=== PATIENT | female | born 1945 | race Caucasian/White ===

== ENCOUNTER 2016-12-30 10:49 | Emergency (ER) | payer OTHER ==
[~2016-12-30] VITALS: Ht 154.9 cm; Wt 59.0 kg
[~2016-12-30 10:49] MED LIST: GEMF600T8; HYDROCODON-ACETAMINOPHEN 5-325; OLAN20TA20; RISP2TAB29; SERT50TA
--- NOTE | 2016-12-30 10:49 | NUR ---
Patient was BIBA and taken to bed 05 via gurney per EMS.
[2016-12-30 10:53] VITALS: BP 124/69
--- NOTE | 2016-12-30 10:55 | NUR ---
PT BIBA FOR EVALUATION OF SOB X3 DAYS. 02 SATS 93% ON ROOM AIR. HX COPD, BORDERLINE DIABETIC, ANXIETY, DEPRESSION, LYMPHOMA-LAST CHEMO TX 2 YEARS AGO. PORT-A-CATH LEFT UPPER CHEST. DENIES N/V/D; SKIN IS PINK/WARM/DRY; AAOX4 WITH EVEN AND STEADY GAIT; LUNGS CLEAR BL; HR EVEN AND REGULAR; PT DENIES ANY CP AT THIS TIME; PATIENT STATES PAIN OF 0/10 AT THIS TIME;PATIENT POSITIONED FOR COMFORT; HOB ELEVATED; BEDRAILS UP X2; BED DOWN. ALL MONITORS IN PLACED.
--- NOTE | 2016-12-30 10:57 | NUR ---
PT O2 SAT WAS 90 % ROOM AIR;PLACED PT IN HIGH FOWLERS POSITION; 2 LPM O2.
--- NOTE | 2016-12-30 11:13 | NUR ---
Dr. Vallecillo evaluating patient at bedside.
[2016-12-30] MEDS ORDERED: NACL 0.9% 500 ML IV ONE ×2 (11:15)
--- NOTE | 2016-12-30 11:22 | NUR ---
XRAY at bedside.
[2016-12-30] MEDS ORDERED: ALBUTEROL SULFATE/IPRATROPIU 3 ML SOL IH ONE (11:35)
--- NOTE | 2016-12-30 11:40 | NUR ---
RT at bedside to give patient breathing treatment.
[2016-12-30 12:09] LABS: BASOPHILS # (AUTO) 0.1 K/uL (0.00-0.22); BASOPHILS % (AUTO) 1.2 % (0.0-2.0); EOSINOPHILS # (AUTO) 0.4 K/uL (0-0.4); EOSINOPHILS % (AUTO) 4.2 % (0.0-4.0); HEMATOCRIT 39.9 % (36-48); HEMOGLOBIN 12.7 g/dL (12.0-16.0); LYMPHOCYTES # (AUTO) 2.1 K/uL (2.5-16.5); LYMPHOCYTES % (AUTO) 20.7 % (20.5-51.1); MEAN CORPUSCULAR HEMOGLOBIN 29 pg (27-31); MEAN CORPUSCULAR HGB CONC 32 g/dL (33-37); MEAN CORPUSCULAR VOLUME 89 fL (80-94); MONOCYTES # (AUTO) 0.7 K/uL (0.8-1.0); MONOCYTES % (AUTO) 6.7 % (1.7-9.3); NEUTROPHILS # (AUTO) 6.6 K/uL (1.8-7.7); NEUTROPHILS % (AUTO) 67.2 % (42.2-75.2); PLATELET COUNT (AUTO) 397 K/uL (140-450); RED BLOOD CELL COUNT(AUTO) 4.46 MIL/uL (4.20-5.40); RED CELL DISTRIBUTION WIDTH 12.2 % (11.6-13.7); WHITE BLOOD COUNT (AUTO) 9.9 K/uL (4.8-10.8)
--- NOTE | 2016-12-30 12:11 | NUR ---
PT ASKED FOR A JUICE;OFFERED WATER INSTEAD BECAUSE BS IS SLIGHTLY ELEVATED;EXPLAINED TO PT THAT IT WILL RAISE HER BS MORE BUT PT GETS UPSET AND INSISTED TO GAVE HER A JUICE.
[2016-12-30 12:14] LABS: APPEARANCE,URINE HAZY (CLEAR); BILIRUBIN,URINE NEGATIVE (NEGATIVE); BLOOD, URINE NEGATIVE (NEGATIVE); LEUKOCYTE ESTERASE ,URINE 2+ (NEGATIVE); NITRITE, URINE POSITIVE (NEGATIVE); PH,URINE 5.5 (5.0-9.0); PROTEIN,URINE NEGATIVE (NEGATIVE); UGLUCOSE NEGATIVE (NEGATIVE); UROBILINOGEN,URINE 0.2 EU/dL (0.2 - 1)
[2016-12-30 12:27] LABS: ANION GAP 11.6 (8-16); CALCIUM 10.5 mg/dL (8.5-10.1); CARBON DIOXIDE 29.8 mmol/L (21-32); CHLORIDE 102 mmol/L (98-107); CREATININE 0.8 mg/dL (0.6-1.3); GLUCOSE 114 mg/dL (74-106); POTASSIUM 4.4 mmol/L (3.5-5.1); SODIUM SERUM 139 mmol/L (136-145); UREA NITROGEN, BLOOD 20 mg/dL (7-18)
[2016-12-30 12:29] LABS: PARTIAL THROMBOPLASTIN TIME 28.9 secs (22-35.6); PROTHROMBIN TIME 10.1 secs (10.8-13.4)
[2016-12-30 12:32] LABS: ALANINE AMINOTRANSFERASE 22 U/L (14-59); ALKALINE PHOSPHATASE 135 U/L (46-116); ASPARTATE AMINOTRANSFERASE 28 U/L (15-37); TOTAL BILIRUBIN 0.2 mg/dL (0.0-1.0); TOTAL PROTEIN, SERUM 7.7 g/dL (6.4-8.2)
[2016-12-30 12:37] LABS: LACTIC ACID 1.1 mmol/L (0.4-2.0)
[2016-12-30 12:45] LABS: BACTERIA,URINE 4+ /HPF (None Seen); RBC,URINE NONE SEEN /HPF (0-5); SQUAMOUS EPITHELIAL CELL,UR 0-3 (FEW) /LPF (0-3 (FEW)); WBC,URINE 16-25 (MOD) /HPF (0-5)
[2016-12-30 12:46] LABS: COLOR,URINE YELLOW (YELLOW)
[2016-12-30] MEDS ORDERED: LEVOFLOXACIN 500 MG/D5W PREMIX 100 ML IV ONE (13:05)
--- NOTE | 2016-12-30 13:16 | NUR ---
PT RESTING IN BED;NO ACUTE DISTRESS NOTED AT THIS TIME.WILL CONTINUE TO MONITOR PT.
--- NOTE | 2016-12-30 13:41 | NUR ---
PT ATE HER LUNCH.
--- NOTE | 2016-12-30 13:42 | NUR ---
PT REMOVED ALL HER MONITORS;WILL CONTINUE TO MONITOR PT.
--- NOTE | 2016-12-30 14:03 | NUR ---
PT REFUSES TO PUT BACK ON HER NC;PT STATES "I DON'T WANT IT BACK ON"
--- NOTE | 2016-12-30 14:09 | NUR ---
PT WANTS TO TAKE OFF HER IV;ADVISED PT TO FINISH HER IV ANTI BIOTIC BUT REFUSES;
--- NOTE | 2016-12-30 14:15 | NUR ---
PT WAS IN A HURRY TO GO HOME;PT STATES "I'M GOING HOME NOW"'
[2016-12-30 14:19] VITALS: BP 112/53
--- NOTE | 2016-12-30 14:19 | NUR ---
Patient discharged with v/s stable. Written and verbal after care instructions given and explained. Patient alert, oriented and verbalized understanding of instructions. Ambulatory with steady gait. All questions addressed prior to discharge. ID band removed. Patient advised to follow up with PMD. Rx of CIRPO AND ALBUTEROL given. Patient educated on indication of medication including possible reaction and side effects. Opportunity to ask questions provided and answered.
== END 2016-12-30 14:19 | disposition home or self-care (01) ==
LOC: MED 10:49
DX: J44.1 Chronic obstructive pulmonary disease with (acute) exacerbation (principal); N39.0 Urinary tract infection, site not specified; Z85.72 Personal history of non-Hodgkin lymphomas; F32.9 Major depressive disorder, single episode, unspecified; F41.9 Anxiety disorder, unspecified
CPT/HCPCS: 36415; 71010; 80053; 81001; 82948; 83605; 83880; 84484; 85025; 85610; 85730; 87040; 87086; 87186; 93005; 94640; 96361; 96365; 99285; J1956; J7030; J7620

== ENCOUNTER 2017-02-05 08:06 | Emergency (ER) | payer OTHER ==
[~2017-02-05] VITALS: Ht 154.9 cm; Wt 56.7 kg
[2017-02-05 08:17] VITALS: BP 124/74
[2017-02-05 09:18] VITALS: BP 122/63
== END 2017-02-05 09:18 | disposition home or self-care (01) ==
LOC: MED 08:06
DX: C85.80 Other specified types of non-Hodgkin lymphoma, unspecified site (principal); J44.9 Chronic obstructive pulmonary disease, unspecified; E11.9 Type 2 diabetes mellitus without complications; Z79.899 Other long term (current) drug therapy; Z88.0 Allergy status to penicillin; Z88.2 Allergy status to sulfonamides; F17.210 Nicotine dependence, cigarettes, uncomplicated
CPT/HCPCS: 99283

== ENCOUNTER 2018-03-04 19:00 | Inpatient (IN) | payer OTHER ==
[~2018-03-04] VITALS: Ht 154.9 cm; Wt 49.9 kg
--- NOTE | 2018-03-04 19:01 | NUR ---
PT BIBA ALS TO BED 3
--- NOTE | 2018-03-04 19:01 | NUR ---
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 PT ALSO REPORTS SHARP MIDSTERNAL CP NONRADIAITING DURING INSPIRATION. ALL LUNG SOUNDS CBTA, 18RR EVEN AND UNLABORED, SATS 97% RA. ABLE TO SPEAK FULL LENGTH WITHOUT DIFFICULTY, SKIN IS WARM AND DRY. HR EVEN AND REGULAR. PMH: COPD, SCHIZOPHRENIA.
[2018-03-04 19:07] VITALS: BP 120/68
--- NOTE | 2018-03-04 19:14 | NUR ---
EKG PERFORMED AT BEDSIDE. PT COVERED IN GOWN DURING PROCEDURE. NORMAL SINUS RHYTHM
[2018-03-04] MEDS ORDERED: KETOROLAC 30 MG/ML VIAL IVP ONE (19:25)
[2018-03-04] MEDS ORDERED: ALBUTEROL SULFATE/IPRATROPIU 3 ML SOL IH ONE ×2 (19:25→21:10)
[2018-03-04] MEDS ORDERED: ALBUTEROL 0.083% 2.5 MG/3 ML NEBU INH ONE ×2 (19:25→21:10)
[2018-03-04] MEDS ORDERED: predniSONE 20 MG TAB PO ONE (19:25)
[2018-03-04 19:51] LABS: BASOPHILS # (AUTO) 0.1 K/uL (0.00-0.22); BASOPHILS % (AUTO) 0.5 % (0.0-2.0); EOSINOPHILS # (AUTO) 0.1 K/uL (0-0.4); EOSINOPHILS % (AUTO) 0.7 % (0.0-4.0); HEMATOCRIT 38.7 % (36-48); HEMOGLOBIN 12.6 g/dL (12.0-16.0); LYMPHOCYTES # (AUTO) 1.9 K/uL (2.5-16.5); LYMPHOCYTES % (AUTO) 15.5 % (20.5-51.1); MEAN CORPUSCULAR HEMOGLOBIN 28 pg (27-31); MEAN CORPUSCULAR HGB CONC 33 g/dL (33-37); MEAN CORPUSCULAR VOLUME 86.2 fL (80-94); MONOCYTES % (AUTO) 8.2 % (1.7-9.3); NEUTROPHILS # (AUTO) 9.1 K/uL (1.8-7.7); NEUTROPHILS % (AUTO) 75.1 % (42.2-75.2); PLATELET COUNT (AUTO) 356 K/uL (140-450); RED BLOOD CELL COUNT(AUTO) 4.49 MIL/uL (4.20-5.40); RED CELL DISTRIBUTION WIDTH 13.1 % (11.6-13.7); WHITE BLOOD COUNT (AUTO) 12.2 K/uL (4.8-10.8)
[2018-03-04 20:15] LABS: ALBUMIN 3.6 g/dL (3.4-5.0); ANION GAP 7.9 (8-16); ASPARTATE AMINOTRANSFERASE 14 U/L (15-37); CARBON DIOXIDE 29.1 mmol/L (21-32); CHLORIDE 92 mmol/L (98-107); CREATININE 0.7 mg/dL (0.6-1.3); GLUCOSE 105 mg/dL (74-106); SODIUM SERUM 125 mmol/L (136-145); TOTAL BILIRUBIN 0.2 mg/dL (0.0-1.0)
[2018-03-04 20:23] LABS: PROTHROMBIN TIME 9.7 secs (10.8-13.4)
[2018-03-04 20:34] LABS: UREA NITROGEN, BLOOD 23 mg/dL (7-18)
--- NOTE | 2018-03-04 21:00 | NUR ---
PT RESTING IN BED COMFORTABLE. NAD
[2018-03-04] MEDS ORDERED: MORPHINE SULFATE 4 MG/ML SYR IVP ONE (21:10)
[2018-03-04] MEDS ORDERED: NACL 0.9% 1,000 ML IV ONE (21:10)
[2018-03-04] MEDS ORDERED: ONDANSETRON 4 MG/2 ML VIAL IVP PRN (22:55)
[2018-03-04] MEDS ORDERED: ACETAMINOPHEN 325 MG TAB PO PRN (22:55)
[2018-03-04] MEDS ORDERED: ALBUTEROL 0.083% 2.5 MG/3 ML NEBU IH PRN (22:55)
--- NOTE | 2018-03-04 23:21 | NUR ---
PT RESTING IN BED. NO S/S OF DISTRESS NOTED
--- NOTE | 2018-03-04 23:30 | NUR ---
Patient will be admitted to care of DR. JORDAN. Admited to TELE. Will go to room 110B. Belongings list completed. Report to CLEVELAND GARCIA.
[2018-03-04 23:40] VITALS: BP 126/58
--- NOTE | 2018-03-04 23:40 | NUR ---
PT ARRIVED FROM ER VIA GURNEY ESCORTED BY ISHAN GARCIA AND EMT TO UNIT. PT ABLE TO AMBULATE TO BED, TELEMONITOR PLACED ON PT AND PT ORIENTED TO ROOM, BATHROOM, ROOMMATE, BED CONTROL, CALL WELLS ECT. PT BREATHING EVEN AND UNLABORED NO S/S OF PAIN OR DISTRESS NOTED.
--- NOTE | 2018-03-05 00:30 | NUR ---
PT AO X3, IN LOW BED SIDE RAILS UP X 2 V/S FOLLOWS T 97.3 P 104 R 22 B/P 126/58 02 97%. PT IN BED AND COOPERATIVE WITH STAFF. HER SKIN IS INTACT AND SHE IS ABLE TO AMBULATE INDEPENDENTLY. PT N/S BOLUS STILL RUNNING, PT CONSTANTLY REMINDED TO KEEP ARM STRAIGHT AND TO KEEP TELEMONITORING STICKERS ON CHEST.
[2018-03-05] MEDS: HYDROmorphone 1 MG/ML AMP IVP PRN ×3 (01:11→10:44)
--- NOTE | 2018-03-05 02:00 | NUR ---
PT C/O OF 7/10 PAIN IN CHEST AND BACK, RECEIVED PRN DILAUDID IVP, POSITIVE EFFECT NOTED , PT STATES THAT SHE IS FEELING BETTER. PT GIVEN JUICE PER REQUEST. ALL REQUESTED NEEDS ATTENDED BY STAFF AND PT HAS CALL WELLS IN HER REACH.
[2018-03-05 04:00] VITALS: BP 129/64
[2018-03-05 05:15] LABS: CREATINE KINASE MB 3.8 ng/mL (0-3.6)
--- NOTE | 2018-03-05 06:00 | NUR ---
PT C/O PAIN IN BACK AND CHEST WHICH IS 8/10. PT GIVEN PRN 0.25ML OF DILAUDID. PT IN LOW BED WITH CALL WELLS IN REACH. WILL MONITOR FOR EFFECT
--- NOTE | 2018-03-05 07:20 | NUR ---
GAVE REPORT TO CARLOS GARCIA DAYSHIFT NURSE AT BEDSIDE FOR CONTINUITY OF CARE. PT IN STABLE CONDITION.
--- NOTE | 2018-03-05 07:25 | NUR ---
RECEIVED PT FROM HOME RESTORATION SERVICE SUPERVISOR NURSE, PT IS AWAKE AND LYING ON THE BED WITH SIDE RAILS UP AND CALL LIGHT WITHIN REACH. SAFETY PRECAUTION ENFORCED, BED ALARM ACTIVATED. PT DENIES PAIN AND HAS AN IV LINE ON SALINE LOCK AT THE LEFT AC G. 20, INTACT. NO SIGN OF DISTRESS NOTED AND WILL CONTINUE TO BE MONITORED
[2018-03-05 08:00] VITALS: BP 142/72
[2018-03-05 08:14] LABS: ALBUMIN 3.7 g/dL (3.4-5.0); ANION GAP 6.7 (8-16); ASPARTATE AMINOTRANSFERASE 16 U/L (15-37); CHLORIDE 99 mmol/L (98-107); CREATININE 0.6 mg/dL (0.6-1.3); GLUCOSE 119 mg/dL (74-106); MAGNESIUM 1.8 mg/dL (1.8-2.4); PHOSPHORUS 3.5 mg/dL (2.5-4.9); POTASSIUM 4.7 mmol/L (3.5-5.1); SODIUM SERUM 130 mmol/L (136-145); TOTAL BILIRUBIN 0.2 mg/dL (0.0-1.0); UREA NITROGEN, BLOOD 18 mg/dL (7-18)
[2018-03-05] MEDS ORDERED: ENOXAPARIN 40 MG/0.4 ML SYR SUBQ SCH (09:00)
[2018-03-05] MEDS ORDERED: ASPIRIN 81 MG TAB.CHEW PO SCH (09:00)
--- NOTE | 2018-03-05 09:04 | NUR ---
PATIENT HAS BEEN SCREENED AND CATEGORIZED MODERATE NUTRITION RISK. PATIENT WILL BE SEEN WITHIN 3-5 DAYS OF ADMISSION. 03/07/18 03/09/[address]
[2018-03-05 12:00] VITALS: BP 134/65
--- NOTE | 2018-03-05 12:10 | NUR ---
PT IS AWAKE AND VITAL SIGNS TAKEN AND WITHIN NORMAL LIMITS. NO SIGN OF DISTRESS NOTED, PT DENIES PAIN AT THIS TIME.
[2018-03-05 12:51] LABS: CREATINE KINASE MB 2.8 ng/mL (0-3.6)
--- NOTE | 2018-03-05 13:40 | NUR ---
DR. ROY CAME TO PT'S ROOM AND TALKED TO PT.
--- NOTE | 2018-03-05 15:53 | NUR ---
ADMISSION CHART REVIEW DONE. ER REPORT AND H&P FAXED TO [facility] [phone] PHONE MANA [phone] FOR DISCHARGE TODAY.
[2018-03-05 16:00] VITALS: BP 136/68
[2018-03-05] MEDS ORDERED: GEMFIBROZIL 600 MG TAB PO SCH (17:00)
--- NOTE | 2018-03-05 17:00 | NUR ---
PTY IS AWAKE AND VITAL SIGNS TAKEN AND IS STABLE. NO SIGN OF DISTRESS NOTED.
--- NOTE | 2018-03-05 18:35 | NUR ---
PT IS AWAKE AND JUST FINISHED WITH HER DINNER, MEDICATION GIVEN AND PT TOLERATED IT. NO SIGN OF DISTRESS NOTED.
--- NOTE | 2018-03-05 19:05 | NUR ---
DISCHARGED PT WITH THE SISTER, DISCHARGED INSTRUCTIONS AND MEDICATION PRESCRIPTION GIVEN. IV LINE AND ARM BAND REMOVED. PT IS STABLE AT THIS TIME.
[2018-03-06] MEDS ORDERED: risperiDONE 1 MG TAB PO SCH (09:00)
[2018-03-06] MEDS ORDERED: OLANZapine 2.5 MG TAB PO SCH (09:00)
[2018-03-06] MEDS ORDERED: SERTRALINE 50 MG TAB PO SCH (09:00)
== END 2018-03-05 19:05 | disposition home or self-care (01) | DRG 206 ==
LOC: MED 19:00 → MTU 23:00
PROVIDERS: ADMIT Hospitalist; ATTEND Hospitalist
DX: M94.0 Chondrocostal junction syndrome [Tietze] (principal); I24.9 Acute ischemic heart disease, unspecified; J44.9 Chronic obstructive pulmonary disease, unspecified; E78.5 Hyperlipidemia, unspecified; F20.9 Schizophrenia, unspecified; Z80.9 Family history of malignant neoplasm, unspecified; Z88.0 Allergy status to penicillin; Z88.7 Allergy status to serum and vaccine; F32.9 Major depressive disorder, single episode, unspecified
CPT/HCPCS: 36415; 71045; 80053; 82550; 82553; 82948; 83735; 83880; 84100; 84484; 85025; 85610; 85730; 87081; 93005; 94640; 96361; 96374; 96375; 99285; J1170; J1650; J1885; J2270; J7030; J7512; J7613; J7620; Q0092

== ENCOUNTER 2018-04-25 22:58 | Inpatient (IN) | payer OTHER ==
[~2018-04-25] VITALS: Ht 152.4 cm; Wt 54.4 kg
[2018-04-25 22:58] VITALS: BP 141/87
[~2018-04-25 22:58] MED LIST changes: -GEMF600T8; +GEMF600T9
[2018-04-26 00:33] LABS: APPEARANCE,URINE CLEAR (CLEAR); COLOR,URINE YELLOW (YELLOW)
[2018-04-26 00:34] LABS: BILIRUBIN,URINE NEGATIVE (NEGATIVE); BLOOD, URINE NEGATIVE (NEGATIVE); LEUKOCYTE ESTERASE ,URINE NEGATIVE (NEGATIVE); NITRITE, URINE NEGATIVE (NEGATIVE); UGLUCOSE NEGATIVE (NEGATIVE)
[2018-04-26 01:31] LABS: BASOPHILS # (AUTO) 0.1 K/uL (0.00-0.22); BASOPHILS % (AUTO) 0.6 % (0.0-2.0); EOSINOPHILS # (AUTO) 0.1 K/uL (0-0.4); EOSINOPHILS % (AUTO) 0.9 % (0.0-4.0); HEMATOCRIT 37.9 % (36-48); HEMOGLOBIN 12.5 g/dL (12.0-16.0); LYMPHOCYTES # (AUTO) 0.9 K/uL (2.5-16.5); LYMPHOCYTES % (AUTO) 10.6 % (20.5-51.1); MEAN CORPUSCULAR HEMOGLOBIN 29 pg (27-31); MEAN CORPUSCULAR HGB CONC 33 g/dL (33-37); MEAN CORPUSCULAR VOLUME 86.7 fL (80-94); MONOCYTES # (AUTO) 0.6 K/uL (0.8-1.0); MONOCYTES % (AUTO) 7.1 % (1.7-9.3); NEUTROPHILS % (AUTO) 80.8 % (42.2-75.2); PLATELET COUNT (AUTO) 450 K/uL (140-450); RED BLOOD CELL COUNT(AUTO) 4.37 MIL/uL (4.20-5.40); RED CELL DISTRIBUTION WIDTH 12.8 % (11.6-13.7); WHITE BLOOD COUNT (AUTO) 8.6 K/uL (4.8-10.8)
[2018-04-26 02:11] LABS: ANION GAP 13.9 (8-16); CARBON DIOXIDE 28.1 mmol/L (21-32); CHLORIDE 100 mmol/L (98-107); CREATININE 0.9 mg/dL (0.6-1.3); GLUCOSE 104 mg/dL (74-106); SODIUM SERUM 139 mmol/L (136-145); UREA NITROGEN, BLOOD 10 mg/dL (7-18)
[2018-04-26 02:24] LABS: ASPARTATE AMINOTRANSFERASE 13 U/L (15-37); TOTAL BILIRUBIN 0.2 mg/dL (0.0-1.0)
[2018-04-26 02:25] LABS: ACETAMINOPHEN < 0.5 ug/ml (10-30); ALBUMIN 3.2 g/dL (3.4-5.0); SALICYLATE 3.7 mg/dL (2.8-20.0)
[2018-04-26 04:12] LABS: BENZODIAZEPINE, URINE NEG. ng/mL (NEG <=200); CANNABINOID, URINE NEG. ng/mL (NEG <=50); COCAINE, URINE NEG. ng/mL (NEG <=300); OPIATE, URINE NEG. ng/mL (NEG <=2000); PHENCYCLIDINE SCREEN,URINE NEG. ng/mL (NEG <=25)
[2018-04-26 04:27] LABS: BARBITURATE, URINE NEGATIVE ng/ml (NEG <=200)
[2018-04-26] MEDS ORDERED: POTASSIUM CHLORIDE 20% 40 MEQ/15 ML UDC PO ONE (07:20)
[2018-04-26] MEDS ORDERED: ALBUTEROL 0.083% 2.5 MG/3 ML NEBU IH PRN (08:05)
[2018-04-26] MEDS ORDERED: MORPHINE SULFATE 4 MG/ML SYR IVP PRN (08:05)
[2018-04-26] MEDS ORDERED: ONDANSETRON 4 MG/2 ML VIAL IVP PRN (08:05)
[2018-04-26 08:30] VITALS: BP 126/63
[2018-04-26] MEDS: ACETAMINOPHEN 325 MG TAB PO PRN ×2 (10:14→15:29)
[2018-04-26] MEDS: ENOXAPARIN 30 MG/0.3 ML SYR SUBQ SCH (10:15)
[2018-04-26] MEDS ORDERED: INSULIN LISPRO SLIDING SCALE 100 UNITS/ML VIAL SUBQ PRN (12:20)
[2018-04-26 16:00] VITALS: BP 107/52
[2018-04-26] MEDS: BLOOD GLUCOSE MONITORING 1 DEV DEV FS SCH ×2 (16:55→21:09)
[2018-04-27] VITALS: BP 114/50
[2018-04-27 08:00] VITALS: BP 112/55
[2018-04-27] MEDS: BLOOD GLUCOSE MONITORING 1 DEV DEV FS SCH ×4 (08:30→20:02)
[2018-04-27] MEDS: OLANZapine 5 MG TAB PO SCH (08:49)
[2018-04-27] MEDS: GEMFIBROZIL 600 MG TAB PO SCH (08:49)
[2018-04-27] MEDS: risperiDONE 1 MG TAB PO SCH (08:49)
[2018-04-27] MEDS: ENOXAPARIN 30 MG/0.3 ML SYR SUBQ SCH (08:52)
[2018-04-27 12:00] VITALS: BP 111/54
[2018-04-28] VITALS: BP 95/50
[2018-04-28] MEDS: BLOOD GLUCOSE MONITORING 1 DEV DEV FS SCH ×4 (05:47→21:17)
[2018-04-28 08:07] VITALS: BP 101/43
[2018-04-28] MEDS: GEMFIBROZIL 600 MG TAB PO SCH (09:40)
[2018-04-28] MEDS: SERTRALINE 50 MG TAB PO SCH (09:40)
[2018-04-28] MEDS: OLANZapine 5 MG TAB PO SCH (09:40)
[2018-04-28] MEDS: risperiDONE 1 MG TAB PO SCH (09:40)
[2018-04-28] MEDS: ENOXAPARIN 30 MG/0.3 ML SYR SUBQ SCH (09:41)
[2018-04-28] MEDS: CHLORHEXADINE GLUC 2% CLOTH TP SCH (15:50)
[2018-04-28] MEDS ORDERED: MUPIROCIN 2% OINT 22 GM TUBE TP SCH (15:50)
[2018-04-28 16:00] VITALS: BP 97/47
[2018-04-28] MEDS: MUPIROCIN CA NASAL 2% 1GM TUBE NS SCH (17:35)
[2018-04-29] VITALS: BP 101/47
[2018-04-29] MEDS ORDERED: INFLUENZA VIRUS VACCINE QUAD 0.5 ML SYR IMVAC PRN (01:40)
[2018-04-29] MEDS: ACETAMINOPHEN 325 MG TAB PO PRN (04:34)
[2018-04-29] MEDS: BLOOD GLUCOSE MONITORING 1 DEV DEV FS SCH ×4 (06:58→20:16)
[2018-04-29 08:00] VITALS: BP 102/48
[2018-04-29] MEDS: MUPIROCIN CA NASAL 2% 1GM TUBE NS SCH ×2 (09:28→17:35)
[2018-04-29] MEDS: risperiDONE 1 MG TAB PO SCH (09:28)
[2018-04-29] MEDS: OLANZapine 5 MG TAB PO SCH (09:28)
[2018-04-29] MEDS: SERTRALINE 50 MG TAB PO SCH (09:28)
[2018-04-29] MEDS: GEMFIBROZIL 600 MG TAB PO SCH (09:28)
[2018-04-29] MEDS: ENOXAPARIN 30 MG/0.3 ML SYR SUBQ SCH (09:29)
[2018-04-29] MEDS: CHLORHEXADINE GLUC 2% CLOTH TP SCH (15:50)
[2018-04-29 16:00] VITALS: BP 101/47
[2018-04-30] VITALS: BP 97/46
[2018-04-30] MEDS: BLOOD GLUCOSE MONITORING 1 DEV DEV FS SCH ×4 (05:49→20:46)
[2018-04-30 08:00] VITALS: BP 96/45
[2018-04-30] MEDS: SERTRALINE 50 MG TAB PO SCH (09:44)
[2018-04-30] MEDS: GEMFIBROZIL 600 MG TAB PO SCH (09:44)
[2018-04-30] MEDS: OLANZapine 5 MG TAB PO SCH (09:44)
[2018-04-30] MEDS: risperiDONE 1 MG TAB PO SCH (09:48)
[2018-04-30] MEDS: MUPIROCIN CA NASAL 2% 1GM TUBE NS SCH ×2 (09:49→18:02)
[2018-04-30] MEDS: ENOXAPARIN 30 MG/0.3 ML SYR SUBQ SCH (09:50)
[2018-04-30] MEDS: CHLORHEXADINE GLUC 2% CLOTH TP SCH (15:50)
[2018-04-30 16:00] VITALS: BP 98/49
[2018-05-01] VITALS: BP 113/52
[2018-05-01] MEDS: BLOOD GLUCOSE MONITORING 1 DEV DEV FS SCH (05:30)
[2018-05-01 08:00] VITALS: BP 117/54
== END 2018-05-01 08:48 | disposition left against medical advice (07) | DRG 885 ==
LOC: MED 22:58 → MTU 04-26 08:17
PROVIDERS: ADMIT Hospitalist; ATTEND Hospitalist
DX: F20.9 Schizophrenia, unspecified (principal); R45.851 Suicidal ideations; I10 Essential (primary) hypertension; J44.9 Chronic obstructive pulmonary disease, unspecified; E11.9 Type 2 diabetes mellitus without complications; Z85.72 Personal history of non-Hodgkin lymphomas; Z88.0 Allergy status to penicillin; Z88.2 Allergy status to sulfonamides; Z79.899 Other long term (current) drug therapy; Z87.891 Personal history of nicotine dependence; Z79.84 Long term (current) use of oral hypoglycemic drugs
CPT/HCPCS: 36415; 80053; 80305; 81003; 82948; 85025; 87081; 93005; 94640; 99285; G0480; G0482; J1650; J7613

== ENCOUNTER 2018-10-24 14:53 | Inpatient (IN) | payer OTHER ==
[~2018-10-24] VITALS: Ht 154.9 cm; Wt 42.6 kg
[~2018-10-24 14:53] MED LIST changes: +GEMF-65; -GEMF600T9; +OLAN20TA; -OLAN20TA20
[2018-10-24 14:54] VITALS: BP 132/64
--- NOTE | 2018-10-24 14:55 | NUR ---
patient to bed #11 from [facility]
[2018-10-24] MEDS ORDERED: VALB40CA PO (15:00)
[2018-10-24] MEDS ORDERED: PALI3TAB PO (15:00)
[2018-10-24] MEDS ORDERED: SERT25TA PO (15:00)
--- NOTE | 2018-10-24 15:06 | NUR ---
X-RAY AT BEDSIDE
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
[2018-10-24] MEDS ORDERED: NACL 0.9% 500 ML IV SCH (15:17)
[2018-10-24] MEDS ORDERED: MORPHINE SULFATE 2 MG/ML SYR IVP ONE (15:20)
[2018-10-24] MEDS ORDERED: KETOROLAC 30 MG/ML VIAL IVP ONE (15:20)
[2018-10-24] MEDS ORDERED: ONDANSETRON 4 MG/2 ML VIAL IVP ONE (15:20)
[2018-10-24 15:40] LABS: BASOPHILS # (AUTO) 0.1 K/uL (0.00-0.22); EOSINOPHILS % (AUTO) 0.6 % (0.0-4.0); HEMOGLOBIN 11.6 g/dL (12.0-16.0); LYMPHOCYTES # (AUTO) 1.7 K/uL (2.5-16.5); LYMPHOCYTES % (AUTO) 20.5 % (20.5-51.1); MEAN CORPUSCULAR HEMOGLOBIN 29 pg (27-31); MEAN CORPUSCULAR HGB CONC 33 g/dL (33-37); MEAN CORPUSCULAR VOLUME 86.5 fL (80-94); MONOCYTES # (AUTO) 0.7 K/uL (0.8-1.0); MONOCYTES % (AUTO) 8.7 % (1.7-9.3); NEUTROPHILS # (AUTO) 5.8 K/uL (1.8-7.7); NEUTROPHILS % (AUTO) 69.2 % (42.2-75.2); PLATELET COUNT (AUTO) 356 K/uL (140-450); RED BLOOD CELL COUNT(AUTO) 4.04 MIL/uL (4.20-5.40); RED CELL DISTRIBUTION WIDTH 13.5 % (11.6-13.7); WHITE BLOOD COUNT (AUTO) 8.3 K/uL (4.8-10.8)
--- NOTE | 2018-10-24 15:42 | NUR ---
Patient taken to CT scan via gurney by [employer].
--- NOTE | 2018-10-24 15:42 | NUR ---
PT TO CT VIA [facility]
[2018-10-24 15:49] LABS: PROTHROMBIN TIME 9.3 secs (10.8-13.4)
--- NOTE | 2018-10-24 15:53 | NUR ---
Patient returned from CT scan. RN re-evaluating patient at bedside.
[2018-10-24 15:58] LABS: ALBUMIN 3.7 g/dL (3.4-5.0); ANION GAP 10.5 (8-16); ASPARTATE AMINOTRANSFERASE 18 U/L (15-37); CARBON DIOXIDE 30.7 mmol/L (21-32); CHLORIDE 99 mmol/L (98-107); CREATININE 0.7 mg/dL (0.6-1.3); GLUCOSE 93 mg/dL (74-106); POTASSIUM 4.2 mmol/L (3.5-5.1); SODIUM SERUM 136 mmol/L (136-145); TOTAL BILIRUBIN 0.2 mg/dL (0.0-1.0); UREA NITROGEN, BLOOD 32 mg/dL (7-18)
--- NOTE | 2018-10-24 16:40 | NUR ---
AMBULATED TO RESTROOM , SLOW STEADY GAIT
--- NOTE | 2018-10-24 17:53 | NUR ---
TO AND FROM RESTROOM WITH STEADY GAIT
[2018-10-24] MEDS ORDERED: LEVOFLOXACIN 500 MG TAB PO ONE (18:00)
[2018-10-24 18:23] LABS: APPEARANCE,URINE CLEAR (CLEAR); BILIRUBIN,URINE NEGATIVE (NEGATIVE); BLOOD, URINE NEGATIVE (NEGATIVE); COLOR,URINE YELLOW (YELLOW); LEUKOCYTE ESTERASE ,URINE 1+ (NEGATIVE); NITRITE, URINE NEGATIVE (NEGATIVE); PH,URINE 6.5 (5.0-9.0); UGLUCOSE NEGATIVE (NEGATIVE)
[2018-10-24 18:29] LABS: RBC,URINE 0-5 /HPF (0-5); WBC,URINE 16-25 (MOD) /HPF (0-5)
[2018-10-24] MEDS ORDERED: MORPHINE SULFATE 4 MG/ML SYR IVP PRN (18:30)
[2018-10-24] MEDS ORDERED: ACETAMINOPHEN 325 MG TAB PO PRN (18:30)
[2018-10-24] MEDS ORDERED: ONDANSETRON 4 MG/2 ML VIAL IVP PRN (18:30)
[2018-10-24] MEDS ORDERED: HYDROcodone/APAP 5/325 MG 1 TAB TAB PO PRN (18:30)
[2018-10-24] MEDS ORDERED: ALBUTEROL 0.083% 2.5 MG/3 ML NEBU INH PRN (18:30)
[2018-10-24 20:00] VITALS: BP 143/73
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
--- NOTE | 2018-10-24 20:00 | NUR ---
Admited to Med-Surg. Patient went to room 113 via [facility] with RN and Luis EMT. Patient acting appropriatly, VSS, patient states 0/10 pain at this time. Belongings list completed. Report to RADHA Maldonado.
[2018-10-24] MEDS: NACL 0.9% 1,000 ML IV SCH (20:48)
--- NOTE | 2018-10-24 20:48 | NUR ---
IVF NOW INFUSING PER ORDERS. NO S/S OF DISTRESS. PT DENIES PAIN.
[2018-10-24] MEDS ORDERED: cefTRIAXone 1,000 MG VIAL ONE (22:27)
[2018-10-24 23:34] VITALS: BP 128/62
--- NOTE | 2018-10-25 | NUR ---
VITAL SIGNS ARE STABLE. PT DENIES ANY SOB OR PAIN. ASSISTED PT TO BATHROOM. PT HAS WEAKNESS. NO S/S OF DISTRESS. ASSISTED PT BACK TO BED. SAFETY MEASURES ARE IN PLACE. CALL LIGHT WITHIN REACH. WILL CONTINUE TO MONITOR.
--- NOTE | 2018-10-25 02:30 | NUR ---
PATIENT IS RESTING COMFORTABLY IN BED. NO S/S OF DISTRESS. PT SEEMS WIDE AWAKE STATES SHE IS NOT TIRED. CALL LIGHT WITHIN REACH. WILL CONTINUE TO MONITOR.
--- NOTE | 2018-10-25 03:57 | NUR ---
PATIENT IS AWAKE RESTING COMFORTABLY IN BED. NO S/S OF DISTRESS. CALL LIGHT WITHIN REACH.
[2018-10-25] MEDS: NACL 0.9% 1,000 ML IV SCH (06:30)
--- NOTE | 2018-10-25 07:25 | NUR ---
PT REPORT RECEIVED FROM SENIOR BIOINFORMATICS SPECIALIST NURSE. PT IS AWAKE AND ALERT, NO S/S OF ACUTE DISTRESS OR SOB NOTED. PT IS ON ROOM AIR, SKIN IS INTACT. PT IS REFUSING TO WEAR THE YELLOW GOWN AND SOCKS FOR FALL RISK. IV SITE NOTED ON THE LAC, 20 G, INFUSING NS 75 ML/HR. CALL LIGHT IS WITHIN REACH, CONTACT ISOLATION IN PLACE. WILL CONTINUE TO MONITOR PT.
--- NOTE | 2018-10-25 07:27 | NUR ---
GAVE BEDSIDE REPORT TO MARCEL AGRCIA. PATIENT ENDORSED IN STABLE CONDITION.
[2018-10-25 08:00] VITALS: BP 144/67
--- NOTE | 2018-10-25 08:36 | NUR ---
PATIENT HAS BEEN SCREENED AND CATEGORIZED HIGH NUTRITION RISK. PATIENT WILL BE SEEN WITHIN 1-2 DAYS OF ADMISSION. 10/25/18-10/26/[address]
[2018-10-25 08:40] LABS: PHOSPHORUS 3.3 mg/dL (2.5-4.9)
[2018-10-25 08:50] LABS: BASOPHILS % (AUTO) 0.6 % (0.0-2.0); EOSINOPHILS # (AUTO) 0.1 K/uL (0-0.4); EOSINOPHILS % (AUTO) 0.9 % (0.0-4.0); HEMOGLOBIN 11.9 g/dL (12.0-16.0); LYMPHOCYTES # (AUTO) 1.4 K/uL (2.5-16.5); LYMPHOCYTES % (AUTO) 20.2 % (20.5-51.1); MEAN CORPUSCULAR HEMOGLOBIN 29 pg (27-31); MEAN CORPUSCULAR HGB CONC 33 g/dL (33-37); MEAN CORPUSCULAR VOLUME 86.6 fL (80-94); MONOCYTES # (AUTO) 0.4 K/uL (0.8-1.0); NEUTROPHILS % (AUTO) 72.3 % (42.2-75.2); PLATELET COUNT (AUTO) 336 K/uL (140-450); RED BLOOD CELL COUNT(AUTO) 4.16 MIL/uL (4.20-5.40); RED CELL DISTRIBUTION WIDTH 13.8 % (11.6-13.7); WHITE BLOOD COUNT (AUTO) 6.9 K/uL (4.8-10.8)
--- NOTE | 2018-10-25 08:57 | NUR ---
PT IS REFUSING TO WEAR A HOSPITAL GOWN, AND INSISTING ON WEARING HER OWN CLOTHES.
[2018-10-25 09:00] LABS: ANION GAP 10.3 (8-16); CARBON DIOXIDE 28.4 mmol/L (21-32); CHLORIDE 103 mmol/L (98-107); CREATININE 0.6 mg/dL (0.6-1.3); GLUCOSE 95 mg/dL (74-106); POTASSIUM 4.7 mmol/L (3.5-5.1); SODIUM SERUM 137 mmol/L (136-145); UREA NITROGEN, BLOOD 25 mg/dL (7-18)
[2018-10-25] MEDS ORDERED: SERTRALINE 50 MG TAB PO SCH (09:00)
[2018-10-25] MEDS ORDERED: PALIPERIDONE 3 MG PO SCH ×2 (09:00)
[2018-10-25] MEDS ORDERED: ENOXAPARIN 30 MG/0.3 ML SYR SUBQ SCH (09:00)
--- NOTE | 2018-10-25 09:22 | NUR ---
PT VERBALIZING THAT SHE WANTS TO GO HOME AMA. I TALKED WITH PT REGARDING IMPORTANCE OF COMPLETING HER MEDICAL CARE AT THE HOSPITAL, BUT SHE IS STILL INSISTING ON LEAVING. MST DIRECTOR LEONARD NOTIFIED, SHE TALKED WITH THE PT WELL. I PAGED DR KUMAR TO NOTIFY HIM OF PT'S DESIRE TO LEAVE; AWAITING HIS CALL BACK.
--- NOTE | 2018-10-25 10:10 | NUR ---
PT SEEN BY DR KUMAR Addendum: 10/25/18 at 1102 by Fara Cifuentes RN DR KUMAR AWARE THAT PT WANTS TO LEAVE
[2018-10-25] MEDS ORDERED: CEPH250C16 PO (10:18)
[2018-10-25] MEDS ORDERED: PNEUMOCOCCAL VACCINE 23 MCG/0.5 ML VIAL IMVAC SCH (10:30)
--- NOTE | 2018-10-25 11:02 | NUR ---
PT HAS DISCHARGED. DC INSTRUCTIONS AND PRESCRIPTION GIVEN, PT VERBALIZED UNDERSTANDING OF INSTRUCTIONS. RETURNED PT'S HOME MEDICATIONS FROM THE PHARMACY. PT WAS ADMINISTERED A PNA VACCINE UPON DISCHARGE, FLU VACCINE IS UP TO DATE. IV SITE AND WRIST BANDS REMOVED. PT'S SISTER IS PICKING HER UP. PT LEFT WITH ALL HER BELONGINGS IN STABLE CONDITION.
[2018-10-25] MEDS ORDERED: VALBENAZINE 40 MG PO SCH (21:00)
--- NOTE | 2018-10-26 13:02 | NUR ---
CALLED PATIENT PHONE ON FILE [phone] TO GIVE INSTRUCTIONS TO MAKE A FOLLOW-UP APPOINTMENT WITH DR LOUISE BUT THE NUMBER IS A NON WORKING NUMBER. CALLED SISTER REGULO [phone] THE PERSON TO NOTIFY ON PATIENT RECORD, LEFT A MESSAGE, WAITING FOR CALL BACK.
== END 2018-10-25 10:50 | disposition home or self-care (01) | DRG 690 ==
LOC: MED 14:53 → MTU 18:26
PROVIDERS: ADMIT Internal Medicine Pulmonary Disease; ATTEND Internal Medicine Pulmonary Disease
PROC: 3E0234Z Introduction of Serum, Toxoid and Vaccine into Muscle, Percutaneous Approach (ICD-10-PCS; principal; 2018-10-25)
DX: N39.0 Urinary tract infection, site not specified (principal); J44.9 Chronic obstructive pulmonary disease, unspecified; F20.9 Schizophrenia, unspecified; G89.29 Other chronic pain; M54.9 Dorsalgia, unspecified; Z85.72 Personal history of non-Hodgkin lymphomas; Z87.891 Personal history of nicotine dependence; Z23 Encounter for immunization; Z88.0 Allergy status to penicillin; Z88.2 Allergy status to sulfonamides; Z79.899 Other long term (current) drug therapy; Y92.481 Parking lot as the place of occurrence of the external cause; V89.2XXA Person injured in unspecified motor-vehicle accident, traffic, initial encounter; Y93.89 Activity, other specified; Y99.8 Other external cause status
CPT/HCPCS: 36415; 71045; 72192; 80048; 80053; 81001; 83735; 84100; 84484; 85025; 85610; 86886; 86900; 86901; 87081; 87086; 87186; 90732; 93005; 96361; 96374; 96375; 97161-GP; 99285; J0696; J1650; J1885; J2270; J2405; J7030; J7060; Q0092

== ENCOUNTER 2019-12-30 14:15 | Emergency (ER) | payer OTHER ==
[~2019-12-30] VITALS: Ht 154.9 cm; Wt 45.4 kg
[~2019-12-30 14:15] MED LIST changes: +CEPH250C16 PO; -GEMF-65; -HYDROCODON-ACETAMINOPHEN 5-325; -OLAN20TA; +PALI3TAB PO; -RISP2TAB29; +SERT25TA PO; -SERT50TA; +VALB40CA PO
[2019-12-30 14:18] VITALS: BP 126/74
--- NOTE | 2019-12-30 14:18 | NUR ---
PT WAITING IN TENT TO BE SEEN BY SHABNAM
--- NOTE | 2019-12-30 14:20 | NUR ---
74 Y/O FEMALE FROM HOME C/O SORE THROAT LASTING 1.5 WKS. PT DENIES COUGH/SOB. AFEBRILE AT THIS TIME. RR EVEN AND UNLABORED. AWAKE AND ALERT. VSS
[2019-12-30 14:54] VITALS: BP 126/74
--- NOTE | 2019-12-30 14:54 | NUR ---
Patient discharged with v/s stable. Written and verbal after care instructions given and explained. Patient alert, oriented and verbalized understanding of instructions. Ambulatory with steady gait. All questions addressed prior to discharge. ID band removed. Patient advised to follow up with PMD. Rx of AZITHROMYCIN 250MG given. Patient educated on indication of medication including possible reaction and side effects. Opportunity to ask questions provided and answered.
== END 2019-12-30 14:54 | disposition home or self-care (01) ==
LOC: MED 14:15
DX: J01.90 Acute sinusitis, unspecified (principal); E11.9 Type 2 diabetes mellitus without complications; I10 Essential (primary) hypertension; J44.9 Chronic obstructive pulmonary disease, unspecified; Z88.0 Allergy status to penicillin; Z88.2 Allergy status to sulfonamides; Z88.1 Allergy status to other antibiotic agents; Z85.9 Personal history of malignant neoplasm, unspecified; Z79.899 Other long term (current) drug therapy
CPT/HCPCS: 99283

== ENCOUNTER 2021-07-03 09:22 | Emergency (ER) | payer OTHER ==
[~2021-07-03] VITALS: Ht 154.9 cm; Wt 41.7 kg
[~2021-07-03 09:22] MED LIST changes: -VALB40CA PO; +VALB40CA2 PO
[2021-07-03 11:19] VITALS: BP 119/60
--- NOTE | 2021-07-03 11:25 | NUR ---
PT W/C ASSISTED TO LOBBY, AWAITING A BED.
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
--- NOTE | 2021-07-03 15:25 | NUR ---
PT MOVED TO ER BED CH B, AWAITING TRANSFER TO [facility]
--- NOTE | 2021-07-03 15:25 | NUR ---
MOVED TO CHB
--- NOTE | 2021-07-03 15:31 | NUR ---
GAVE REPORT TO JIMI AT [facility] FOR TRANSFER. ETA FOR FILLER BLENDER IS 1530. ACCEPTING DR IS DR MUNGUIA, WILL GO TO ROOM 110A
--- NOTE | 2021-07-03 17:08 | NUR ---
TRANSFER CONSENT SIGNED
--- NOTE | 2021-07-03 17:22 | NUR ---
Patient discharged with v/s stable. Written and verbal after care instructions given and explained. Patient alert, oriented and verbalized understanding of instructions. Ambulance Transport with to custodial. All questions addressed prior to discharge. ID band removed. Patient advised to follow up with PMD. NO Rx given. Patient educated on indication of medication including possible reaction and side effects. Opportunity to ask questions provided and answered.
[2021-07-03 17:25] VITALS: BP 133/64
[2021-07-03] MEDS ORDERED: ACET-8386 PO (18:14)
== END 2021-07-03 17:22 | disposition short-term general hospital (02) ==
LOC: MED 09:22
DX: S32.591A Other specified fracture of right pubis, initial encounter for closed fracture (principal); J44.9 Chronic obstructive pulmonary disease, unspecified; I10 Essential (primary) hypertension; Z88.0 Allergy status to penicillin; Z88.2 Allergy status to sulfonamides; Z88.1 Allergy status to other antibiotic agents; W18.39XA Other fall on same level, initial encounter; Y93.89 Activity, other specified; Y92.89 Other specified places as the place of occurrence of the external cause; Y99.8 Other external cause status
CPT/HCPCS: 72170; 73502; 99284

== ENCOUNTER 2021-11-14 15:29 | Inpatient (IN) | payer OTHER ==
[~2021-11-14] VITALS: Ht 152.4 cm; Wt 43.1 kg
[~2021-11-14 15:29] MED LIST changes: +ACET-8386 PO
--- NOTE | 2021-11-14 15:33 | NUR ---
BIBA TAKEN TO BED 1
[2021-11-14 15:40] VITALS: BP 119/57
[2021-11-14] MEDS ORDERED: NACL 0.9% 500 ML IV ONE (15:50)
--- NOTE | 2021-11-14 16:05 | NUR ---
76/F BIBA FROM [facility] WITH C/O DIARRHEA X8 DAYS. PATIENT DENIES ABDOMINAL PAIN OR N/V, REPORTS 7/10 BILATERAL FEET PAIN AND SWELLING IN THE PAST WEEK. STATES SHE HAS BEEN TAKING IMMODIUM WITH NO RELIEF.
[2021-11-14 16:10] LABS: BASOPHILS % (AUTO) 0.3 % (0.0-2.0); EOSINOPHILS % (AUTO) 0.3 % (0.0-4.0); HEMOGLOBIN 8.5 g/dL (12.0-16.0); LYMPHOCYTES # (AUTO) 3.3 K/uL (2.5-16.5); LYMPHOCYTES % (AUTO) 23.2 % (20.5-51.1); MEAN CORPUSCULAR HEMOGLOBIN 25 pg (27-31); MEAN CORPUSCULAR HGB CONC 32 g/dL (33-37); MEAN CORPUSCULAR VOLUME 79.7 fL (80-94); MONOCYTES # (AUTO) 1.2 K/uL (0.8-1.0); MONOCYTES % (AUTO) 8.2 % (1.7-9.3); NEUTROPHILS # (AUTO) 9.6 K/uL (1.8-7.7); PLATELET COUNT (AUTO) 579 K/uL (140-450); RED BLOOD CELL COUNT(AUTO) 3.38 MIL/uL (4.20-5.40); RED CELL DISTRIBUTION WIDTH 16.8 % (11.6-13.7); WHITE BLOOD COUNT (AUTO) 14.1 K/uL (4.8-10.8)
--- NOTE | 2021-11-14 16:35 | NUR ---
# 14 FR Urinary catheter inserted utilizing sterile technique. Immediate return of 30 ml YELLOW, CLOUDY urine noted. Urine sample collected and sent to lab. Pt tolerated procedure WELL.
[2021-11-14 16:44] LABS: ALBUMIN 2.6 g/dL (3.4-5.0); AMYLASE 32 U/L (25-115); ANION GAP 6.3 (8-16); ASPARTATE AMINOTRANSFERASE 32 U/L (15-37); CARBON DIOXIDE 27.8 mmol/L (21-32); CHLORIDE 96 mmol/L (98-107); CREATININE 0.5 mg/dL (0.6-1.3); GLUCOSE 100 mg/dL (74-106); LIPASE 7 U/L (73-393); POTASSIUM 5.1 mmol/L (3.5-5.1); SODIUM SERUM 125 mmol/L (136-145); TOTAL BILIRUBIN 0.3 mg/dL (0.0-1.0); UREA NITROGEN, BLOOD 7 mg/dL (7-18)
--- NOTE | 2021-11-14 16:50 | NUR ---
Female Exterior Designer accompanied female patient for Rectal Exam.
--- NOTE | 2021-11-14 17:00 | NUR ---
PT WET HER DIAPER, PATIENT DIAPER AND UNDER PADS CHANGED, PATIENT REPOSITIONED IN BED, ALL NEEDS MET AT THIS TIME.
--- NOTE | 2021-11-14 17:15 | NUR ---
RADHA SWAB COLLECTED AND WALKED TO LAB
--- NOTE | 2021-11-14 17:35 | NUR ---
PATIENT TAKEN TO CT VIA [facility]
--- NOTE | 2021-11-14 17:50 | NUR ---
PT RETURNED FROM CT
--- NOTE | 2021-11-14 18:20 | NUR ---
PT WET HER DIAPER, PATIENT DIAPER AND UNDER PADS CHANGED, PATIENT REPOSITIONED IN BED, ALL NEEDS MET AT THIS TIME.
[2021-11-14] MEDS ORDERED: ONDANSETRON 4 MG/2 ML VIAL IVP PRN (18:30)
[2021-11-14] MEDS ORDERED: MORPHINE SULFATE 2 MG/ML SYR IVP PRN (18:30)
[2021-11-14] MEDS ORDERED: ACETAMINOPHEN 325 MG TAB PO PRN (18:30)
[2021-11-14] MEDS: NACL 0.9% 1,000 ML IV SCH (18:51)
[2021-11-14] MEDS ORDERED: APIX2.5 PO (19:06)
--- NOTE | 2021-11-14 19:23 | NUR ---
Pt report given to JESUS ARCHULETA. Transfer of care at this time.
--- NOTE | 2021-11-14 19:39 | NUR ---
IFORMED PT ADMISSIOM. UPON QUESTIONING PT IS A&OX4. PT IS LAYING DOWN COMFORTABLE
--- NOTE | 2021-11-14 20:20 | NUR ---
PATIENT WAS BROUGHT TO MST UNIT FROM ER VIA [facility]. WITH CC: DIARRHEA X8 DAYS AND BLOODY STOOL. NO COMPLAINTS OF PAIN AT THIS TIME. NO S/S OF RESPIRATORY DISTRESS NOTED. BREATHING EVEN UNLABORED. SKIN IS INTACT AND WARM TO THE TOUCH. ABLE TO AMBULATE. ALL SAFETY PRECAUTIONS ARE IN PLACE. ORIENTED TO CALL LIGHT, RESTROOM, STAFF. IVF OF NS INFUSING AT 125 ML/HR TOLERATING WELL. MRSA SCREENING DONE. WILL CONTINUE TO MONITOR PT.
--- NOTE | 2021-11-14 20:47 | NUR ---
2000Patient will be admitted to care of DR. LONGORIA. Admited to . Will go to room. Belongings list completed. Report to NICOLASA.
--- NOTE | 2021-11-14 20:47 | NUR ---
The patient's care was reviewed and supervised by Jordana Roque RN.
[2021-11-14] MEDS: PANTOPRAZOLE 40 MG INJ VIAL IVP SCH (22:08)
--- NOTE | 2021-11-14 22:08 | NUR ---
DUE MEDICATION GIVEN ORDERED.
[2021-11-15] VITALS: BP 114/52
[2021-11-15] MEDS: NACL 0.9% 1,000 ML IV SCH ×3 (04:00→19:08)
--- NOTE | 2021-11-15 04:00 | NUR ---
PATIENT CLEANED AND CHANGED. NO SOB NOTED. CALL LIGHT WITHIN REACH.
[2021-11-15 07:11] LABS: BASOPHILS % (AUTO) 0.2 % (0.0-2.0); EOSINOPHILS % (AUTO) 0.2 % (0.0-4.0); HEMATOCRIT 26.9 % (36-48); HEMOGLOBIN 8.7 g/dL (12.0-16.0); LYMPHOCYTES # (AUTO) 2.4 K/uL (2.5-16.5); LYMPHOCYTES % (AUTO) 19.5 % (20.5-51.1); MEAN CORPUSCULAR HEMOGLOBIN 26 pg (27-31); MEAN CORPUSCULAR HGB CONC 32 g/dL (33-37); MEAN CORPUSCULAR VOLUME 79.3 fL (80-94); MONOCYTES % (AUTO) 7.6 % (1.7-9.3); NEUTROPHILS # (AUTO) 9.1 K/uL (1.8-7.7); NEUTROPHILS % (AUTO) 72.5 % (42.2-75.2); PLATELET COUNT (AUTO) 546 K/uL (140-450); RED BLOOD CELL COUNT(AUTO) 3.39 MIL/uL (4.20-5.40); RED CELL DISTRIBUTION WIDTH 16.8 % (11.6-13.7); WHITE BLOOD COUNT (AUTO) 12.6 K/uL (4.8-10.8)
[2021-11-15 07:23] LABS: ALBUMIN 2.2 g/dL (3.4-5.0); ANION GAP 8.5 (8-16); ASPARTATE AMINOTRANSFERASE 40 U/L (15-37); CARBON DIOXIDE 27.1 mmol/L (21-32); CHLORIDE 105 mmol/L (98-107); CREATININE 0.5 mg/dL (0.6-1.3); GLUCOSE 83 mg/dL (74-106); MAGNESIUM 1.7 mg/dL (1.8-2.4); POTASSIUM 4.6 mmol/L (3.5-5.1); SODIUM SERUM 136 mmol/L (136-145); TOTAL BILIRUBIN 0.3 mg/dL (0.0-1.0); UREA NITROGEN, BLOOD 6 mg/dL (7-18)
--- NOTE | 2021-11-15 07:28 | NUR ---
PATIENT HAD 1X EPISODE OF SMALL BM SEMI FORMED. ENDORSED TO AM RN FOR CONTINUITY OF CARE. PT IS STABLE.
--- NOTE | 2021-11-15 07:32 | NUR ---
RECEIVED PATIENT FROM TRANSITION ASSISTANT NURSE FOR CONTINUITY OF CARE. PT IS AOX4, ABLE TO MAKE NEEDS KNOWN. RESPIRATIONS EVEN AND UNLABORED. ON ROOM AIR AND ON DISTRESS NOTED. SKIN IS WARM, DRY, AND INTACT. IV SITE ON RH 20 G INFUSING FLUIDS ORDERED. INTACT AND PATENT. PATIENT DENIES PAIN AT THE MOMENT. HAD A BM LAST NIGHT, BUT NO DIARRHEA. PLAN OF CARE DISCUSSED. CONTACT ISOLATION IN PLACE. SAFETY PRECAUTIONS IN PLACE. BED IN LOW POSITION. CALL LIGHT WITHIN REACH. WILL CONTINUE TO MONITOR.
--- NOTE | 2021-11-15 07:42 | NUR ---
PATIENT HAS BEEN SCREENED AND CATEGORIZED HIGH NUTRITION RISK. PATIENT WILL BE SEEN WITHIN 1-2 DAYS OF ADMISSION. RECEIVED REFERRAL FOR DIARRHEA OVER THREE DAYS [address]
[2021-11-15 08:00] VITALS: BP 110/56
[2021-11-15] MEDS: PANTOPRAZOLE 40 MG INJ VIAL IVP SCH ×2 (09:05→20:43)
--- NOTE | 2021-11-15 09:20 | NUR ---
ALL SCHEDULED MEDS GIVEN. PT IS STABLE. NO DISTRESS NOTED. WILL CONTINUE TO MONITOR.
--- NOTE | 2021-11-15 12:09 | NUR ---
DC PLANNIN YRS OLD FEMALE PATIENT WAS ADMITTED FROM HOME WITH A DX OF DIARRHEA. PATIENT HAS A HX OF COPD NON-HODGKIN'S LYMPHOMA IN REMISSION. CT ABD/PELVIS SHOWED MILD LEFT BASILAR CONSOLIDATION SUSPICIOUS FOR PNEUMONIA. URINE AND BLOOD CULTURE PENDING. ADMINISTERED IVF, AND PROTONIX IVP. DC PLAN TO GO HOME WHEN STABLE CM TO FOLLOW Addendum: 11/17/21 at 1345 by Gladis Tavares RN DC PLANNING: CALLED [facility]ILES [phone] SEVERAL TIMES LEFT A MESSAGE, PT STATED HAS NO MENESES TO GET IN, CALLED HER SISTER STATED SHE IS IN [place], UNABLE TO PICK HER UP. CM OFFERED TRANSPORT HOW EVER PER REGULO SINCE SHE KEEPS LOOSING HER MENESES, HAS NO LONGER HOLD THE MENESES, AND THE PERSON HOLDING THE MENESES DOESN'T WORK ON THE WEEKEND. CM TO FOLLOW Addendum: 11/18/21 at 0826 by Mandi Garcia CM DC PLANNING: MESSAGE LEFT ON FOR [facility] ASKING FOR A CALL BACK REGARDING TRANSPORT. HALEY WILL FOLLOW. Addendum: 11/18/21 at 1059 by Mandi Garcia CM DC PLANNING: HALEY SPOKE WITH THE PATIENTS SISTER BY PHONE, SHE WILL SEND SOMEONE TO UNLOCK THE PATIENTS APARTMENT, ASKED THAT TRANSPORT BE ARRANGED. CM SPOKE WITH THE PATIENT TO ENDORSE PLAN OF DC TODAY VIA [facility] TRANSPORT. TRANSPORT REQUESTED THROUGH [facility] FOR [employer], HALEY WILL FOLLOW. Addendum: 11/18/21 at 1129 by Mandi Garcia CM DC PLANNING: HALEY SPOKE WITH THE PATIENTS SISTER REGARDING DC PLANNING. THE PATIENT LIVES AT [facility] AND HAS CAREGIVERS M-F, 8 HOURS/DAY. HER SISTER ACTS HER CAREGIVER ON THE WEEKENDS, PATIENT IS INDEPENDENT WITH AMBULATION AND DOES HAVE A WALKER ALTHOUGH SHE DOESN'T USE IT. SHE IS INDEPENDENT WITH ADL'S. CM WILL FOLLOW. Addendum: 11/18/21 at 1414 by Mandi Garcia CM DC PLANNING: RADHA GARCIA ENDORSED THAT THE PATIENTS SISTER WILL HAVE HER CAREGIVER TRANSPORT THE PATIENT HOME. TRANSPORT CANCELLED WITH [facility]. CM WILL FOLLOW. Addendum: 11/18/21 at 1527 by Mandi Garcia CM DC PLANNING: CM RECEIVED A CALL FROM [employer] ([phone]), MADE AWARE THAT PATIENT IS ON SERVICE WITH THEM, ASKED CM TO FAX AN ORDER TO [facility]. ORDER AND CLINICAL PACKET FAXED FOR THEM TO [facility], PT, OT AND RN OVERSIGHT. CM WILL FOLLOW.
--- NOTE | 2021-11-15 12:30 | NUR ---
CHECKED ON PATIENT. PT IS SLEEPING. NOTED CHEST RISE AND FALL. NO DISTRESS NOTED. WILL CONTINUE TO MONITOR.
--- NOTE | 2021-11-15 15:00 | NUR ---
CHECKED ON PATIENT. PT IS STABLE. NO DISTRESS NOTED. WILL CONTINUE TO MONITOR.
[2021-11-15 16:00] VITALS: BP 119/58
--- NOTE | 2021-11-15 18:45 | NUR ---
ALL SCHEDULED MEDS GIVEN. PT IS STABLE. NO DISTRESS NOTED. WILL CONTINUE TO MONITOR.
--- NOTE | 2021-11-15 19:30 | NUR ---
ENDORSED TO INVESTMENT BANKING MANAGER NURSE FOR CONTINUITY OF CARE. PT IS STABLE.
--- NOTE | 2021-11-15 19:31 | NUR ---
RECEIVED PATIENT IN BED ASLEEP AND NON VERBAL. ENDORSED BY LEILA GARCIA. STOOL IN NO LONGER NEEDED BECAUSE BM WAS FORMED TODAY MD IS AWARE. NPO DIET AND IS ON OBSERVATION. BED AT THE LOWEST LEVEL WITH SIDE RAILS X 3 FOR SAFETY. NO NOTED ACUTE DISTRESS OF RESPIRATORY. NO NOTED S/SX OF ACUTE PAIN/DISCOMFORT. CALL LIGHT WITHIN REACH FOR ALL NEEDS AND SUPPORT. [email or web address]
--- NOTE | 2021-11-15 20:00 | NUR ---
REVIEWED PLAN OF CARE WITH JESUS BARRAGAN. [email or web address]
--- NOTE | 2021-11-15 21:31 | NUR ---
PATIENT IN BED ASLEEP. ASSIGNED RN GAVE HER IV COVERAGE PER MD ORDERS. TOLERATED WELL. BED AT THE LOWEST LEVEL WITH SIDE RAILS X 3 FOR SAFETY. NO NOTED ACUTE DISTRESS OF RESPIRATORY. NO NOTED S/SX OF ACUTE PAIN/DISCOMFORT. CALL LIGHT WITHIN REACH FOR ALL NEEDS AND SUPPORT. [email or web address]
[2021-11-16] VITALS: BP 119/58
--- NOTE | 2021-11-16 00:31 | NUR ---
BED AT THE LOWEST LEVEL WITH SIDE RAILS X 3 FOR SAFETY. NO NOTED ACUTE DISTRESS OF RESPIRATORY. NO NOTED S/SX OF ACUTE PAIN/DISCOMFORT. CALL LIGHT WITHIN REACH FOR ALL NEEDS AND SUPPORT. [email or web address]
[2021-11-16] MEDS: NACL 0.9% 1,000 ML IV SCH ×3 (02:49→19:09)
[2021-11-16 04:00] VITALS: BP_SYST 108; BP_SYST 119; BP_DIAS 55; BP_DIAS 58
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
[2021-11-16 07:06] LABS: BASOPHILS % (AUTO) 0.2 % (0.0-2.0); HEMATOCRIT 27.1 % (36-48); HEMOGLOBIN 8.7 g/dL (12.0-16.0); LYMPHOCYTES # (AUTO) 1.9 K/uL (2.5-16.5); LYMPHOCYTES % (AUTO) 10.6 % (20.5-51.1); MEAN CORPUSCULAR HEMOGLOBIN 26 pg (27-31); MEAN CORPUSCULAR HGB CONC 32 g/dL (33-37); MEAN CORPUSCULAR VOLUME 79.6 fL (80-94); MONOCYTES # (AUTO) 1.7 K/uL (0.8-1.0); MONOCYTES % (AUTO) 9.6 % (1.7-9.3); NEUTROPHILS # (AUTO) 14.5 K/uL (1.8-7.7); NEUTROPHILS % (AUTO) 79.6 % (42.2-75.2); PLATELET COUNT (AUTO) 595 K/uL (140-450); RED BLOOD CELL COUNT(AUTO) 3.41 MIL/uL (4.20-5.40); RED CELL DISTRIBUTION WIDTH 17.2 % (11.6-13.7); WHITE BLOOD COUNT (AUTO) 18.2 K/uL (4.8-10.8)
[2021-11-16 07:15] LABS: ANION GAP 13.5 (8-16); ASPARTATE AMINOTRANSFERASE 20 U/L (15-37); CARBON DIOXIDE 21.5 mmol/L (21-32); CHLORIDE 103 mmol/L (98-107); CREATININE 0.4 mg/dL (0.6-1.3); GLUCOSE 64 mg/dL (74-106); SODIUM SERUM 134 mmol/L (136-145); TOTAL BILIRUBIN 0.5 mg/dL (0.0-1.0); UREA NITROGEN, BLOOD 7 mg/dL (7-18)
--- NOTE | 2021-11-16 07:23 | NUR ---
ENDORSED TO JOSE GARCIA FOR CONTINUITY OF CARE, PATIENT IS STABLE. [email or web address]
--- NOTE | 2021-11-16 07:34 | NUR ---
PT IS RESTING COMFORTABLE IN BED, GOT REPORT FROM THE NIGHT NURSE.[email or web address]
[2021-11-16] MEDS: PANTOPRAZOLE 40 MG INJ VIAL IVP SCH ×2 (09:15→22:23)
[2021-11-16 10:05] VITALS: BP 110/59
--- NOTE | 2021-11-16 12:17 | NUR ---
11/16/21 RD INITIAL ASSESSMENT COMPLETED PLEASE REFER TO NUTRITION ASSESSMENT UNDER CARE ACTIVITY FOR ESTIMATED NUTRITIONAL NEEDS. RD RECOMMENDATIONS: 1. CONTINUE CLEAR LIQUID DIET TOLERATED 2. IF/WHEN PT IS ABLE TO ADVANCE DIET, CONSIDER CCHO 60 GM, LOW NA DIET WITH TEXTURE MODIFICATIONS PER MD/MARKETING ROTATION ASSOCIATE 3. RD WILL F/U 2-3 DAYS; HIGH RISK RENY MOHAN, RD
--- NOTE | 2021-11-16 12:49 | NUR ---
PT IS DISCHARGED AND ATTEMPTED TO REACH THE NEXT OF KIN TO PICK THE PATIENT BUT NO ANSWER LEFT A MESSAGE TWO TIMES,FLORES
[2021-11-16] MEDS ORDERED: LEVO-315 PO (15:50)
[2021-11-16 16:00] VITALS: BP 129/84
[2021-11-16 16:23] VITALS: BP 129/84
--- NOTE | 2021-11-16 16:45 | NUR ---
CALLED THE NEXT OF KIN FOR THE HOME ORGANIZER AND LEFT MESSAGE 2X [email or web address]
--- NOTE | 2021-11-16 21:00 | NUR ---
CALLED NEXT OF KIN TO KNOW WHEN TO PICK, NO REPLY WENT INTO [employer]. LEFT A MESSAGE ON [employer] [employer]. PT CHANGED, MADE COMFORTABLE. WILL CONT. TO MONITOR.
--- NOTE | 2021-11-17 02:00 | NUR ---
NOTED PT C/O IV IS LEAKING. CONFIRMED AND NEW IV LINE STARTED @RT HAND. ALL DUE MEDS GIVEN.
[2021-11-17] MEDS: NACL 0.9% 1,000 ML IV SCH ×2 (04:36→10:30)
[2021-11-17 06:38] VITALS: BP 112/43
--- NOTE | 2021-11-17 07:35 | NUR ---
got report from the night nurse,pt awake in bed no discomfort.[email or web address]
--- NOTE | 2021-11-17 07:39 | NUR ---
END OF SHIFT REPORT TO INCOMING RN. PT ASLEEP IN BED, NO S/SX OF DISTRESS, ALL SAFETY AND COMFORT MEASURES IN PLACE. IV FLUIDS RUNNING @RT HAND, PATENT AND NOT INFILTRATED. PT STABLE AT THIS TIME, ENDORSED CONTINUITY OF CARE.
[2021-11-17] MEDS: PANTOPRAZOLE 40 MG INJ VIAL IVP SCH (09:14)
[2021-11-17 12:00] VITALS: BP 112/43
--- NOTE | 2021-11-17 12:31 | NUR ---
SPOKE WITH DAUGHTER REGULO, SHE SAID THERE IS NO BODY IN THE PT APARTMENT, THE APARTMENT OFFICE IS CLOSED TO GET THE MENESES. THE DAUGHTER IS OUT OF TOWN AND WILL COME TOMORROW WITH THE MENESES. SO SHE SAYS SHE WILL PICK HER UP TOMORROW.[id number]
--- NOTE | 2021-11-17 15:51 | NUR ---
IV .9NS IS DISCONNECTED, PT AWAKE WATCHING TV, NO DISCOMFORT.[id number]
--- NOTE | 2021-11-17 19:21 | NUR ---
RECEIVED BEDSIDE REPORT FROM DAY SHIFT NURSE. PT IS ON STABLE CONDITION.
[2021-11-17 20:00] VITALS: BP 120/60
--- NOTE | 2021-11-17 21:00 | NUR ---
PT IS AWAKE AND ON STABLE CONDITION. DENIES OF PAIN OR DISCOMFORT.
[2021-11-18 04:00] VITALS: BP 135/61
--- NOTE | 2021-11-18 07:25 | NUR ---
PT IS ON STABLE CONDITION. ENDORSE TO DAY SHIFT NURSE FOR CONTINUITY OF PATIENT CARE.
--- NOTE | 2021-11-18 07:25 | NUR ---
ENDORSED PT FROM NIGHTSHIFT NURSE FOR CONTINUITY OF CARE. DISCUSSED PLAN OF CARE, PT STABLE AND CURRENTLY SLEEPING. PT STABLE, A/OX2, SKIN INTACT, WITH IV CLEAN, DRY, AND PATENT. AMBULATES WITH ASSISTANCE, WILL CONTACT FAMILY MEMBER REGARDING POTENTIAL DISCHARGE.
[2021-11-18 08:00] VITALS: BP 118/52
--- NOTE | 2021-11-18 09:00 | NUR ---
PT IS AWAKE AND ALERT. NO DISTRESS NOTED. ANSWERS QUESTIONS ASKED. EXCESSIVELY STATES YES TO MOST QUESTIONS. DENIES PAIN AT THIS TIME. ATE 100% OF BREAKFAST, GOOD APPETITE. PT IS STABLE.
--- NOTE | 2021-11-18 11:16 | NUR ---
ENDORSED PT TO RADHA GARCIA FOR CONTINUITY OF CARE. PT IS STABLE. PLAN OF CARE DISCUSSED.
--- NOTE | 2021-11-18 11:19 | NUR ---
ASSUMED PATIENT CARE. PATIENT ALERT AWAKE , NOT IN ANY DISTRESS NOTED. FOR DC TODAY WAITING FOR A RIDE. TRENCH TRIMMER FINE AWARE. WILL CONTINUE TO MONITOR.
--- NOTE | 2021-11-18 11:20 | NUR ---
SCREEN FOR LOW KEITH SCALE AT RISK, CONTINUE TO FOLLOW PRESSURE ULCER PREVENTION INTERVENTIONS. -TURN AND REPOSITION PATIENT Q 2H, ASSIST IF NEEDED -ASSESS AND MONITOR SKIN CONDITION DURING POSITION CHANGES -OFFLOAD BILATERAL HEELS BY PLACING PILLOWS UNDER CALVES AT ALL TIMES, UNLESS OTHERWISE CONTRAINDICATED -PRESSURE REDISTRIBUTION BY PLACING PILLOWS AND OFFLOADING SACRALCOCCYX -KEEP SKIN CLEAN AND DRY AT ALL TIMES.
--- NOTE | 2021-11-18 13:00 | NUR ---
SPOKE TO PATIENT SISTER AND SHE SAID SHE WILL CALL [facility] IF THEY CAN PICK HER UP. SHE SAID THEY WILL PICK HER UP SOON POSSIBLE.
--- NOTE | 2021-11-18 13:30 | NUR ---
CAREGIVER IS HERE. REMOVED IV, DISCHARGED TO [facility] VIA WHEELCHAIR WITH DC PAPERS. PATIENT UNABLE TO SIGN. IN STABLE CONDITION.
== END 2021-11-18 13:30 | disposition home or self-care (01) | DRG 391 ==
LOC: MED 15:29 → MTU 18:32 → MMU 18:42 → MTU 19:36 → OBSVTOIN 11-17 13:35
PROVIDERS: ADMIT Hospitalist; ATTEND Hospitalist
DX: R19.7 Diarrhea, unspecified (principal); E43 Unspecified severe protein-calorie malnutrition; E87.1 Hypo-osmolality and hyponatremia; Z68.1 Body mass index [BMI] 19.9 or less, adult; I95.9 Hypotension, unspecified; Z20.822 Contact with and (suspected) exposure to COVID-19; J44.9 Chronic obstructive pulmonary disease, unspecified; F20.9 Schizophrenia, unspecified; Z88.1 Allergy status to other antibiotic agents; Z88.0 Allergy status to penicillin; Z88.2 Allergy status to sulfonamides; Z79.891 Long term (current) use of opiate analgesic; Z85.9 Personal history of malignant neoplasm, unspecified
CPT/HCPCS: 36415; 80053; 82150; 83605; 83690; 83735; 85025; 87040; 87081; 87086; C9113; G0378